=== PATIENT | female | born 1970 | race Caucasian/White ===

== ENCOUNTER → 2022-12-16 | Outpatient (CLI) | payer OTHER ==
--- NOTE | 2022-12-17 08:59 | MM ---
Reason for Exam: Screening (asymptomatic). Baseline mammogram. Patient History: Menarche at age 12. First Full-Term at age 22. Last menstrual period: 12/04/2022 Risk Values: Niru 5 year model risk: 0.9%. NCI Lifetime model risk: 8.8%. Prior Study Comparison: Patient's first Mammogram. Tissue Density: The breast tissue is heterogeneously dense. This may lower the sensitivity of mammography. Findings: Analyzed By CAD. There is no suspicious group of microcalcifications or new suspicious mass in either breast. Overall Assessment: Benign, BI-RAD 2 Management: Screening Mammogram of both breasts in 1 year. . Patient should continue monthly self-breast exams. A clinical breast exam by your physician is recommended on an annual basis. This exam should not preclude additional follow-up of suspicious palpable abnormalities. Note on Niru scores and lifetime risk: 1. A Niru score greater than 3% is considered moderate risk. If this is the case, consider specialist referral to assess eligibility for a risk reducing agent. 2. If overall lifetime risk for the development of breast cancer is 20% or higher, the patient may qualify for future screening with alternating mammogram and breast MRI. Electronically signed and approved by: Jay Reilly M.D. Radiologis
== END | disposition home or self-care (01) ==
LOC: RADMAMWWP 09:28
PROVIDERS: ATTEND Obstetrics & Gynecology
DX: Z12.31 Encounter for screening mammogram for malignant neoplasm of breast (principal)
CPT/HCPCS: 77067

== ENCOUNTER 2022-12-23 12:21 | Day surgery (SDC) | payer OTHER ==
[~2022-12-23 12:21] MED LIST: DEXAMETHASONE SOD PHOSPHATE 4 MG/ML 1 ML VIAL IV ONE; LACTATED RINGERS 1,000 ML IV SCH; ONDANSETRON 4 MG/2 ML VIAL IVP ONE
[2022-12-23] MEDS ORDERED: LACTATED RINGERS 1,000 ML IV ONE (12:46)
[2022-12-23] MEDS ORDERED: MIDAZOLAM 2 MG/2 ML VIAL IVP ONE (13:23)
[2022-12-23] MEDS ORDERED: MIDAZOLAM 2 MG/2 ML VIAL ONE (13:46)
[2022-12-23] MEDS ORDERED: fentaNYL (PF) 50 MCG/ML 2 ML AMP ONE (13:46)
[2022-12-23] MEDS ORDERED: KETOROLAC 15 MG/ML 1 ML VIAL ONE (13:46)
[2022-12-23] MEDS ORDERED: PROPOFOL 10 MG/ML 20 ML VIAL IV ONE (13:46)
[2022-12-23] MEDS ORDERED: LIDOCAINE 2% INJ 20 MG/ML (2 ML VIAL) ONE (13:46)
--- NOTE | 2022-12-23 14:22 | P.OP ---
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 She's placed in the dorsal lithotomy position. The cervix, vagina, perineal bodies are all prepped and draped in usual sterile fashion. The appropriate timeout is performed to assure proper patient and procedural identification. Weighted speculum was placed into the vagina, bladder is drained for approximately 150 mL of clear yellow urine. Cervix is injected circumferentially with a total of 10 mL of Pitressin to aid in hemostasis. Stay sutures are placed on the cervix with 0 Vicryl, on the left from 2:00 to 4:00, tied and held with a hemostat, and on the right from 10:00 to 8:00, tied and held with a hemostat. Lugol's solution is then placed on the surface of the cervix. A scalpel is used now to remove a large conization specimen with care to include the entire Lugol stained area previously biopsied. This is suture tied at 12:00. An endocervical curettage is then vigorously performed and sent under separate cover. The ball cautery is used 2 thoroughly cauterize the entire base of the conization specimen, hemostasis is excellent. Monsel solution is not applied. Stay sutures are removed. All sponge needle and enhancement counts are correct. Patient is brought back to recovery room in excellent condition with stable vital signs including blood pressure 125/75, pulse 67. She is given Toradol prior to leaving the operative suite. She will follow-up in the office with me next week. A grade 3-4 uterine prolapse is noted during the case.
[2022-12-23 14:32] VITALS: TEMP 96.8
[2022-12-23] MEDS: HYDROmorphone 0.5 MG/0.5 ML SYRINGE IVP PRN ×2 (14:38→14:57)
[2022-12-23 15:25] VITALS: RESP 16
[2022-12-23 15:38] VITALS: BP 127/80; PULSE 59
== END 2022-12-23 16:03 | disposition home or self-care (01) ==
LOC: OR 12:21
PROVIDERS: ATTEND Obstetrics & Gynecology
DX: R87.613 High grade squamous intraepithelial lesion on cytologic smear of cervix (HGSIL) (principal); Z98.890 Other specified postprocedural states; Z88.0 Allergy status to penicillin
CPT/HCPCS: 57520; 81025; 88305; 88342; 88307; J2250; J1100; J2405; J3010; J1885; J2704; J1170; J2001